=== PATIENT | female | born 1990 | race Caucasian/White ===

== ENCOUNTER → 2019-09-18 | Outpatient (CLI) | payer OTHER | END | disposition home or self-care (01) | LOC: PUC 16:39 | DX: N76.0 Acute vaginitis (principal) | CPT/HCPCS: 87491; 87591 ==

== ENCOUNTER 2019-11-04 16:41 | Emergency (ER) | payer OTHER ==
[~2019-11-04] VITALS: Ht 160 cm; Wt 68.2 kg
[2019-11-04 16:49] VITALS: BP 97/71
== END 2019-11-04 17:41 | disposition home or self-care (01) ==
LOC: EMS 16:41
DX: H00.011 Hordeolum externum right upper eyelid (principal); L05.91 Pilonidal cyst without abscess; F12.90 Cannabis use, unspecified, uncomplicated